=== PATIENT | male | born 1965 | race African-American/Black ===

== ENCOUNTER 2019-10-06 13:03 | Inpatient (IN) | payer OTHER ==
--- NOTE | 2019-10-06 13:24 | BHS.RME ---
Substance Use & Tx History - Substance Use History Alcohol Substance amount: 1/4 gallon vodka Frequency of use: Daily Substance route: Oral Date of Last Use: 10/05/19 Nicotine Substance amount: 1/2 cigg Frequency of use: Daily Substance route: Smoking Date of Last Use: 10/06/19 Physical/Psych/Mental Status - Behavior General Behavior: Increased activity (restlessness, agitation) Eye Contact: Normal - Cooperativeness Cooperativeness: Cooperative - Thinking Thought Processes: Tight, Logical, Goal Directed - Physical Health Problems Is patient presently having any pain?: No Does patient presently have any injuries (include location): No Does patient currently have a fever: No Is patient : No CIWA Nausea/Vomitin-No Nausea/No Vomiting Muscle Tremors: None Anxiety: 0-No Anxiety, at Ease Agitation: 0-Normal Activity Paroxysmal Sweats: No Perspiration Orientation: 0-Oriented Tacttile Disturbances: 0-None Auditory Disturbances: 0-None Visual Disturbances: 0-None Headache: 0-None Present CIWA-Ar Total Score: 0
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
[2019-10-06] MEDS ORDERED: NICOTINE POLACRILEX 2 MG GUM BUC PRN (14:32)
[2019-10-06] MEDS ORDERED: MAG HYDROX/AL HYDROX/SIMETH 30 ML UNIT-DOSE CUP PO PRN (14:32)
[2019-10-06] MEDS ORDERED: MAGNESIUM CITRATE 300 ML BOTTLE PO PRN (14:32)
[2019-10-06] MEDS ORDERED: METHOCARBAMOL 500 MG TABLET PO PRN (14:32)
[2019-10-06] MEDS ORDERED: MENTHOL/PHENOL 1 EACH UD MM PRN (14:32)
[2019-10-06] MEDS ORDERED: IBUPROFEN 400 MG TABLET (FP) PO PRN (14:32)
[2019-10-06] MEDS ORDERED: MAGNESIUM HYDROX 2400MG/30ML ORAL SUSPENSION 30 ML CUP PO PRN (14:32)
[2019-10-06] MEDS ORDERED: ACETAMINOPHEN 325 MG TABLET (FP) PO PRN ×2 (14:32)
[2019-10-06] MEDS ORDERED: ONDANSETRON *ODT* 4 MG TABLET SL ONE (14:32)
[2019-10-06] MEDS ORDERED: BISMUTH SUBSALICYLATE 262 MG/15 ML BTL PO PRN (14:32)
[2019-10-06] MEDS ORDERED: chlordiazePOXIDE HCL 25 MG CAPSULE PO PRN (14:34)
[2019-10-06 15:07] VITALS: BMI 25.7
[2019-10-06] MEDS: NICOTINE 7 MG/24 HOURS TOPICAL PATCH TD SCH (15:58)
[2019-10-06] MEDS: PRENATAL VITAMINS W/ FOLIC ACID TABLET (FP) PO SCH (16:02)
[2019-10-06] MEDS ORDERED: chlordiazePOXIDE HCL 25 MG CAPSULE PO SCH (17:00)
[2019-10-06 17:23] LABS: HEMATOCRIT 26.2 % (35.4-49); HEMOGLOBIN 8.9 GM/dL (11.7-16.9); MCH 34.8 pg (25.7-33.7); MCHC 33.8 g/dl (32.0-35.9); MEAN PLT VOLUME 8.9 fl (7.5-11.1); RBC 2.54 M/mm3 (4.00-5.60); RDW 24.5 % (11.9-15.9); WHITE BLOOD COUNT 3.7 K/mm3 (4.0-10.0)
[2019-10-06 17:36] LABS: BILIRUBIN,TOTAL 0.7 mg/dL (0.2-1); BLOOD UREA NITROGEN 8.2 mg/dL (7-18); CALCIUM 7.6 mg/dL (8.5-10.1); CREATININE 0.7 mg/dL (0.55-1.3); TOT PROT 6.4 g/dl (6.4-8.2)
[2019-10-06 17:56] LABS: POTASSIUM 2.9 mmol/L (3.5-5.1)
--- NOTE | 2019-10-06 17:57 | PN ---
[facility] Progress Note Note: called by nursing re : K+ 2.9 Abnormal Lab Results 10/06/19 10/06/19 14:20 14:20 WBC 3.7 L RBC 2.54 L Hgb 8.9 L Hct 26.2 L MCV 103.0 H MCH 34.8 H RDW 24.5 H Potassium 2.9 L* Calcium 7.6 L AST 259 H ALT 83 H Alkaline Phosphatase 668 H Albumin 3.0 L KCL 40 mEq x once , repeat potassium level in the a.m. d/c Librium , start Ativan taper 2/2 elevated LFTs ammonia level now Anemia transaminitis hypoalbuminemia f/up by medical staff in the a.m.
[2019-10-06] MEDS ORDERED: hydrOXYzine PAMOATE 25 MG CAPSULE (FP) PO PRN (17:58)
[2019-10-06] MEDS ORDERED: LORazepam 1 MG TABLET PO PRN (17:59)
[2019-10-06] MEDS ORDERED: hydrOXYzine PAMOATE 25 MG CAPSULE (FP) PO SCH (18:00)
[2019-10-06] MEDS ORDERED: POTASSIUM CHLORIDE TABS 20 MEQ TABLET.ER (FP) PO ONE (18:15)
[2019-10-06] MEDS: LORazepam 2 MG TABLET PO SCH ×2 (18:19→22:35)
[2019-10-06 19:14] LABS: PLATELET COUNT 97 K/MM3 (134-434)
[2019-10-06] MEDS ORDERED: METOPROLOL TARTRATE 25 MG TABLET (FP) PO ONE (21:50)
--- NOTE | 2019-10-06 21:50 | PN ---
S Progress Note Note: called for elevated BP Vital Signs - 24 hr 10/06/19 10/06/19 10/06/19 15:00 15:53 15:54 Temperature 98.5 F 97.2 F L Pulse Rate 98 H 98 H Respiratory 18 18 Rate Blood Pressure 149/82 150/90 O2 Sat by Pulse 98 Oximetry (%) 10/06/19 10/06/19 16:36 20:26 Temperature 97.8 F 98.4 F Pulse Rate 66 95 H Respiratory 18 20 Rate Blood Pressure 156/89 167/85 O2 Sat by Pulse 98 Oximetry (%) P : metoprolol 25 mg once
[2019-10-06] MEDS ORDERED: MELATONIN 5 MG TABLETS PO SCH (22:00)
[2019-10-06] MEDS: THIAMINE HCL 100 MG TABLET (FP) PO SCH (22:35)
--- NOTE | 2019-10-06 23:40 | EKG ---
Test Reason : Blood Pressure : / mmHG Vent. Rate : 071 BPM Atrial Rate : 071 BPM P-R Int : 144 ms QRS Dur : 094 ms QT Int : 462 ms P-R-T Axes : 052 046 060 degrees QTc Int : 502 ms NORMAL SINUS RHYTHM LEFT VENTRICULAR HYPERTROPHY PROLONGED QT NONSPECIFIC ST ABNORMALITY ABNORMAL ECG NO PREVIOUS ECGS AVAILABLE Confirmed by MD CAMP MOYSES ([id number]) on 10/06/2019 11:39:26 PM Referred By: Confirmed By:LIVIER CAMP MD
[2019-10-07] MEDS: LORazepam 2 MG TABLET PO SCH ×4 (06:52→22:16)
--- NOTE | 2019-10-07 08:23 | PN ---
Teaching Attending Note Name of Resident: Larry Bhatt ATTENDING PHYSICIAN STATEMENT I saw and evaluated the patient. I reviewed the resident's note and discussed the case with the resident. I agree with the resident's findings and plan as documented. SUBJECTIVE: OBJECTIVE: ASSESSMENT AND PLAN:
[2019-10-07] MEDS: PRENATAL VITAMINS W/ FOLIC ACID TABLET (FP) PO SCH (10:12)
[2019-10-07] MEDS: NICOTINE 7 MG/24 HOURS TOPICAL PATCH TD SCH (10:12)
[2019-10-07] MEDS: LACTULOSE 20 GM/30 ML UDC (FOR ORAL USE ONLY) PO SCH ×4 (10:14→21:42)
[2019-10-07] MEDS ORDERED: MELATONIN 5 MG TABLETS PO PRN (10:38)
--- NOTE | 2019-10-07 10:42 | PN ---
S CIWA - CIWA Score Nausea/Vomitin-No Nausea/No Vomiting Muscle Tremors: 3 Anxiety: 2 Agitation: 2 Paroxysmal Sweats: 1-Minimal Palms Moist Orientation: 0-Oriented Tacttile Disturbances: 0-None Auditory Disturbances: 0-None Visual Disturbances: 0-None Headache: 0-None Present CIWA-Ar Total Score: 8 [facility] Progress Note (SOAP) Subjective: sweats irritable agitation interrupted sleep Objective: 10/07/19 10:40 Vital Signs Temperature 97.8 F 10/07/19 09:05 Pulse Rate 90 10/07/19 09:05 Respiratory Rate 16 10/07/19 09:05 Blood Pressure 105/65 10/07/19 09:05 O2 Sat by Pulse Oximetry (%) 99 10/07/19 05:43 Laboratory Tests 10/06/19 10/06/19 10/06/19 14:20 14:20 14:20 WBC 3.7 L RBC 2.54 L Hgb 8.9 L Hct 26.2 L MCV 103.0 H MCH 34.8 H MCHC 33.8 RDW 24.5 H Plt Count 97 L MPV 8.9 Platelet Comment Decreased Sodium 140 Potassium 2.9 L* Chloride 99 Carbon Dioxide 25 Anion Gap 16 BUN 8.2 Creatinine 0.7 Est GFR (CKD-EPI)AfAm 124.00 Est GFR (CKD-EPI)NonAf 106.99 Random Glucose 104 Calcium 7.6 L Total Bilirubin 0.7 AST 259 H ALT 83 H Alkaline Phosphatase 668 H Ammonia Total Protein 6.4 Albumin 3.0 L Syphilis Serology Non-reactive 10/06/19 20:49 WBC RBC Hgb Hct MCV MCH MCHC RDW Plt Count MPV Platelet Comment Sodium Potassium Chloride Carbon Dioxide Anion Gap BUN Creatinine Est GFR (CKD-EPI)AfAm Est GFR (CKD-EPI)NonAf Random Glucose Calcium Total Bilirubin AST ALT Alkaline Phosphatase Ammonia 170.80 H Total Protein Albumin Syphilis Serology labs noted low potassium 2.9; high ammonia level 170.80. pt is aaox3, pt is aware of his surrounding and purpose of detox. ambulating no acute distress pt agreed for another blood draw tomorrow. encouraged fluids Assessment: 10/07/19 10:41 withdrawals Plan: continue detox increase fluids labs ordered for tomorrow. lacutose ordered potassium ordered
[2019-10-07] MEDS: THIAMINE HCL 100 MG TABLET (FP) PO SCH (21:42)
[2019-10-08] MEDS ORDERED: chlordiazePOXIDE HCL 25 MG CAPSULE PO SCH (05:00)
[2019-10-08] MEDS: LORazepam 1 MG TABLET PO SCH ×2 (06:23→10:46)
[2019-10-08] MEDS ORDERED: POTASSIUM CHLORIDE TABS 20 MEQ TABLET.ER (FP) PO SCH ×2 (10:00→22:00)
[2019-10-08] MEDS: LACTULOSE 20 GM/30 ML UDC (FOR ORAL USE ONLY) PO SCH (10:44)
[2019-10-08] MEDS: PRENATAL VITAMINS W/ FOLIC ACID TABLET (FP) PO SCH (10:45)
[2019-10-08] MEDS: NICOTINE 7 MG/24 HOURS TOPICAL PATCH TD SCH (10:45)
[2019-10-08 10:54] VITALS: BP 141/84; PULSE 86; TEMP 97.7
[2019-10-08 11:20] LABS: BASO % 1.1 % (0-2.0); EOS % 0.4 % (0-4.5); HEMATOCRIT 26.2 % (35.4-49); HEMOGLOBIN 8.7 GM/dL (11.7-16.9); LYMPH % 20.6 % (8-40); MCH 34.6 pg (25.7-33.7); MCHC 33.2 g/dl (32.0-35.9); MEAN CELL VOLUME 104.2 fl (80-96); MEAN PLT VOLUME 9.6 fl (7.5-11.1); MONO % 6.2 % (3.8-10.2); NEUT % 71.7 % (42.8-82.8); PLATELET COUNT 89 K/MM3 (134-434); RBC 2.51 M/mm3 (4.00-5.60); RDW 24.4 % (11.9-15.9); WHITE BLOOD COUNT 4.2 K/mm3 (4.0-10.0)
[2019-10-08 11:33] LABS: BILIRUBIN,TOTAL 0.6 mg/dL (0.2-1); BLOOD UREA NITROGEN 8.2 mg/dL (7-18); CALCIUM 8.3 mg/dL (8.5-10.1); CREATININE 0.8 mg/dL (0.55-1.3); TOT PROT 6.4 g/dl (6.4-8.2)
--- NOTE | 2019-10-08 12:07 | PN ---
S CIWA - CIWA Score Nausea/Vomitin-Mild Nausea/No Vomiting Muscle Tremors: 2 Anxiety: 2 Agitation: 2 Paroxysmal Sweats: No Perspiration Orientation: 0-Oriented Tacttile Disturbances: 0-None Auditory Disturbances: 0-None Visual Disturbances: 0-None Headache: 0-None Present CIWA-Ar Total Score: 7 [facility] Progress Note (SOAP) Subjective: alert,,oriented x 3,irritable,anxious,interrupted sleep,aching pain Objective: 10/08/19 12:07 Vital Signs Temperature 97.7 F 10/08/19 09:25 Pulse Rate 86 10/08/19 09:25 Respiratory Rate 16 10/08/19 09:25 Blood Pressure 141/84 10/08/19 09:25 O2 Sat by Pulse Oximetry (%) 97 10/08/19 09:25 10/08/19 12:08 Laboratory Last Values WBC 4.2 K/mm3 (4.0-10.0) 10/08/19 07:30 RBC 2.51 M/mm3 (4.00-5.60) L 10/08/19 07:30 Hgb 8.7 GM/dL (11.7-16.9) L 10/08/19 07:30 Hct 26.2 % (35.4-49) L 10/08/19 07:30 MCV 104.2 fl (80-96) H 10/08/19 07:30 MCH 34.6 pg (25.7-33.7) H 10/08/19 07:30 MCHC 33.2 g/dl (32.0-35.9) 10/08/19 07:30 RDW 24.4 % (11.9-15.9) H 10/08/19 07:30 Plt Count 89 K/MM3 (134-434) L 10/08/19 07:30 MPV 9.6 fl (7.5-11.1) 10/08/19 07:30 Absolute Neuts (auto) 3.0 K/mm3 (1.5-8.0) 10/08/19 07:30 Neutrophils % 71.7 % (42.8-82.8) 10/08/19 07:30 Lymphocytes % 20.6 % (8-40) 10/08/19 07:30 Monocytes % 6.2 % (3.8-10.2) 10/08/19 07:30 Eosinophils % 0.4 % (0-4.5) 10/08/19 07:30 Basophils % 1.1 % (0-2.0) 10/08/19 07:30 Nucleated RBC % 4 % (0-0) H 10/08/19 07:30 Platelet Comment Decreased 10/06/19 14:20 Sodium 138 mmol/L (136-145) 10/08/19 07:30 Potassium 3.0 mmol/L (3.5-5.1) L 10/08/19 07:30 Chloride 98 mmol/L (98-107) 10/08/19 07:30 Carbon Dioxide 31 mmol/L (21-32) 10/08/19 07:30 Anion Gap 9 MMOL/L (8-16) 10/08/19 07:30 BUN 8.2 mg/dL (7-18) 10/08/19 07:30 Creatinine 0.8 mg/dL (0.55-1.3) 10/08/19 07:30 Est GFR (CKD-EPI)AfAm 117.38 10/08/19 07:30 Est GFR (CKD-EPI)NonAf 101.27 10/08/19 07:30 Random Glucose 150 mg/dL (74-106) H 10/08/19 07:30 Calcium 8.3 mg/dL (8.5-10.1) L 10/08/19 07:30 Total Bilirubin 0.6 mg/dL (0.2-1) 10/08/19 07:30 AST 173 U/L (15-37) H 10/08/19 07:30 ALT 68 U/L (13-61) H 10/08/19 07:30 Alkaline Phosphatase 571 U/L (45-117) H 10/08/19 07:30 Ammonia 158.40 umol/L (11-32) H 10/08/19 07:30 Total Protein 6.4 g/dl (6.4-8.2) 10/08/19 07:30 Albumin 3.0 g/dl (3.4-5.0) L 10/08/19 07:30 Syphilis Serology Non-reactive (NONREACTIVE) 10/06/19 14:20 Assessment: 10/08/19 12:08 withdrawal symptom Plan: continue detox librium regimen,k dur 20 meq po bid,ferrous sulfate 325 mgs po bid,continue lactulose 20 grams po qid
[2019-10-08 12:23] LABS: ANISOCYTOSIS 2+; MACROCYTOSIS 2+; PLATELET ESTIMATE DECREASED; TARGET CELLS 2+; TEAR DROP CELLS 1+
[2019-10-08] MEDS ORDERED: FERROUS SO4 325 MG TABLET (FP) PO SCH (22:00)
[2019-10-09] MEDS ORDERED: chlordiazePOXIDE HCL 10 MG CAPSULE PO PRN
[2019-10-09] MEDS ORDERED: LORazepam 0.5 MG TABLET PO PRN
[2019-10-09] MEDS ORDERED: LORazepam 0.5 MG TABLET PO SCH (05:00)
[2019-10-09] MEDS ORDERED: chlordiazePOXIDE HCL 10 MG CAPSULE PO SCH (05:00)
[2019-10-10] MEDS ORDERED: LORazepam 0.5 MG TABLET PO ONE (05:00)
[2019-10-10] MEDS ORDERED: chlordiazePOXIDE HCL 10 MG CAPSULE PO SCH (05:00)
[2019-10-11] MEDS ORDERED: chlordiazePOXIDE HCL 10 MG CAPSULE PO ONE (05:00)
== END 2019-10-08 12:20 | disposition left against medical advice (07) | DRG 770 ==
LOC: YASAS 13:03 → Y6N 15:05
PROVIDERS: ADMIT Allergy & Immunology; ATTEND Allergy & Immunology
PROC: HZ2ZZZZ Detoxification Services for Substance Abuse Treatment (ICD-10-PCS; principal; 2019-10-06)
DX: F10.230 Alcohol dependence with withdrawal, uncomplicated (principal); F17.210 Nicotine dependence, cigarettes, uncomplicated; E88.09 Other disorders of plasma-protein metabolism, not elsewhere classified; R16.0 Hepatomegaly, not elsewhere classified; D64.9 Anemia, unspecified; R74.0 Nonspecific elevation of levels of transaminase and lactic acid dehydrogenase [LDH]; R03.0 Elevated blood-pressure reading, without diagnosis of hypertension
CPT/HCPCS: 36415; 80053; 82140; 85025; 85027; 86780; 93005; 93010; U0003